=== PATIENT | female | born 1955 | race Caucasian/White ===

== ENCOUNTER 2017-08-22 09:59 | Emergency (ER) | payer OTHER ==
[2017-08-22 10:11] VITALS: RESP 18; TEMP 98; O2SAT 98
[2017-08-22] MEDS ORDERED: ACETAMINOPHEN 500 MG TAB PO ONE (11:09)
--- NOTE | 2017-08-22 11:09 | EDPHY ---
H & P Time Seen by Provider: 08/22/17 10:49 HPI/ROS: CHIEF COMPLAINT: Wrist pain HISTORY OF PRESENT ILLNESS: 61-year-old female was pulling a pepper plant of her garden. She was pulling quite hard, with both hands on the plant, and when it gave way she fell backwards breaking her fall with her left outstretched hand. She denies hitting her head. No loss of consciousness, back pain, chest pain, or shortness of breath. She was otherwise well. REVIEW OF SYSTEMS: Aside from elements discussed in the HPI, a comprehensive 10-point review of systems was reviewed and is negative. PAST MEDICAL HISTORY: Osteoporosis. SOCIAL HISTORY: . GENERAL APPEARANCE: Pleasant, alert, conversant. FOCUSED EXAM OF left upper extremity: Full range of motion, no deformities, no pain at the shoulder. Full range of motion, no deformity, no pain at the elbow. No tenderness over the humerus. No tenderness over the forearm with the exception of the distal wrist. Swelling present over the distal wrist. No obvious deformity. Tender to palpation. Brisk capillary refill in all fingers. Radial and ulnar pulses are intact. Sensation intact to radial, ulnar , median. Smoking Status: Never smoked Constitutional: Initial Vital Signs Temperature (C) 36.6 C 08/22/17 10:09 Heart Rate 78 08/22/17 10:09 Respiratory Rate 18 08/22/17 10:09 Blood Pressure 124/62 H 08/22/17 10:09 O2 Sat (%) 98 08/22/17 10:09 O2 Delivery Mode Room Air Allergies/Adverse Reactions: Sulfa (Sulfonamide Antibiotics) Allergy (Intermediate, Verified 06/01/14 17:31) Home Medications: Medication Instructions Recorded Fosamax 10 mg 10/15/09 Hydrocodone/APAP 5/325 [Galva 1 tab PO Q6H PRN #10 tab 08/22/17 5/325 (RX)] Medical Decision Making - Diagnostics Imaging Results: Imaging Impressions Wrist X-Ray 08/22/17 10:07 Impression: 1. Comminuted distal left radial metaphyseal fracture with intra-articular extension and dorsal angulation. ED Course/Re-evaluation: 61-year-old female with a distal radius fracture. Fracture is intra-articular, minimal dorsal angulation. Course discussed with Dr. Tyrone Andujar. Films reviewed. Recommendation to splint in place, follow-up in the clinic tomorrow to discuss operative repair. Discussed with the patient, she understands the importance of rest, ice, elevation, nonsteroidals, and narcotics if needed. She will follow up with Dr. Andujar tomorrow. Differential Diagnosis: Differential diagnosis for the patient's injury was considered including but not limited to contusion, abrasion, laceration, fracture, open fracture, or dislocation. - Data Points Medications Given: Discontinued Medications Acetaminophen (Tylenol) 1,000 mg PO EDNOW ONE Stop: 08/22/17 11:10 Last Admin: 08/22/17 11:25 Dose: 1,000 mg Departure - Departure Disposition: Home, Routine, Self-Care Clinical Impression: Distal radius fracture, left Qualifiers: Encounter type: initial encounter Fracture type: closed Fracture morphology: other intra-articular Qualified Code(s): S52.572A - Other intraarticular fracture of lower end of left radius, initial encounter for closed fracture Condition: Good Instructions: Wrist Fracture in Adults (ED), Splint Care (ED) Additional Instructions: Mainstay of therapy is rest, ice, immobilization, elevation, and nonsteroidal anti-inflammatories for pain and to decrease swelling. Apply ice for 20-30 minutes every 2-3 hours for the next 48 hours. I recommend Ibuprofen (Motrin, Advil) or Naproxen Sodium (Aleve) for pain and anti-inflammatory effects. You may take either one, but do not take both. Your dose is: Ibuprofen 600 mg every 6-8 hours with food. OR Naproxen Sodium (Aleve) 220 mg every 12 hours. If pain is severe, you may also add Tylenol, 650-1000 mg every 4 hours. Okay to use hydrocodone as needed for severe pain. Please note, hydrocodone also contains Tylenol. Followup with the orthopedic surgeon as directed. Call Dr. Andujar is office this afternoon. They will want to see you in clinic tomorrow to discuss further management, most likely to include operative management. Referrals: Elan Andujar MD [Medical Doctor] - As per Instructions Prescriptions: Hydrocodone/APAP 5/325 [Galva 5/325 (RX)] 1 tab PO Q6H PRN #10 tab PRN Reason: Pain
[2017-08-22 11:31] VITALS: BP 135/63; PULSE 77
== END 2017-08-22 11:30 | disposition home or self-care (01) ==
LOC: CED 09:59
DX: S52.572A Other intraarticular fracture of lower end of left radius, initial encounter for closed fracture (principal); W18.39XA Other fall on same level, initial encounter; Y92.007 Garden or yard of unspecified non-institutional (private) residence as the place of occurrence of the external cause; Y99.8 Other external cause status; Y93.H2 Activity, gardening and landscaping
CPT/HCPCS: 73110-PO

== ENCOUNTER → 2018-02-25 | Outpatient (CLI) | payer OTHER | LOC: BMCIMAGING 12:48 | PROVIDERS: ATTEND Family Medicine | DX: Z12.31 Encounter for screening mammogram for malignant neoplasm of breast (principal); Z13.820 Encounter for screening for osteoporosis; M81.0 Age-related osteoporosis without current pathological fracture; Z78.0 Asymptomatic menopausal state ==

== ENCOUNTER → 2018-05-01 | Outpatient (CLI) | payer OTHER | LOC: FIMAGING 15:16 | PROVIDERS: ATTEND Family Medicine | DX: M50.322 Other cervical disc degeneration at C5-C6 level (principal) ==